=== PATIENT | male | born 1970 | race Caucasian/White ===

== ENCOUNTER 2021-07-27 07:47 | Observation (INO) | payer OTHER ==
--- NOTE | 2021-07-27 09:00 | XR ---
EXAMINATION TYPE: XR chest 2V DATE OF EXAM: 07/27/2021 COMPARISON: None HISTORY: 50-year-old male confusion, altered mental status TECHNIQUE: PA and lateral views FINDINGS: The cardiomediastinal silhouette, aorta, and pulmonary vasculature are within normal limits. Mild hyp erinflation. Some strandy atelectasis in the lower lungs. Otherwise, lungs and pleural spaces are jone ar. IMPRESSION: Hyperinflation may relate to depth of inspiration or underlying emphysema. Clinically correlate. Othe rwise, no acute cardiopulmonary process.
[2021-07-27 09:18] LABS: Basophils # (A) 0.1 k/uL (0-0.2); Basophils % (A) 1 %; Eosinophils # (A) 0.1 k/uL (0-0.7); Eosinophils % (A) 1 %; HCT 46.3 % (39.0-53.0); HGB 15.8 gm/dL (13.0-17.5); Lymphocytes # (A) 2.8 k/uL (1.0-4.8); Lymphocytes % (A) 36 %; MCH 31.2 pg (25.0-35.0); MCHC 34.2 g/dL (31.0-37.0); MCV 91.3 fL (80.0-100.0); Mean Platelet Volume 8.3; Monocytes # (A) 0.5 k/uL (0-1.0); Monocytes % (A) 6 %; Neutrophils # (A) 4.2 k/uL (1.3-7.7); Neutrophils % (A) 54 %; Platelet Count 192 k/uL (150-450); RBC 5.07 m/uL (4.30-5.90); RDW 12.3 % (11.5-15.5); WBC 7.7 k/uL (3.8-10.6)
--- NOTE | 2021-07-27 09:28 | ED ---
General Adult HPI - General Chief complaint: Neuro Symptoms/Deficit Stated complaint: Facial Numbness Source: patient Mode of arrival: ambulatory Limitations: no limitations - History of Present Illness Initial comments: 50-year-old male with past medical history of hyperlipidemia presents emergency Department with reported left eye drooping and numbness to his left cheek. Charlette cruz reports that his symptoms started over the weekend. His girlfriend noticed that his left eyelid was drooping which appears to have subsequently resolved. He was putting lubricating eyedrops in the left eye. This morning the patient awoke and noted a numbing sensation to his left cheek. Denies any new facial droop. No numbness, tingling or weakness in his left upper lower extremity. No speech difficulties or swallowing changes. Denies chest pain or shortness of breath. No history of stroke. Denies any recent head trauma. No fevers or chills. Patient is on a blood thinner. No headaches or visual changes. No other alleviating, precipitating or modifying factors - Related Data Home Medications Medication Instructions Recorded Confirmed Rosuvastatin [Crestor] 10 mg PO DAILY 07/27/21 07/27/21 Previous Rx's Medication Instructions Recorded Artificial Tears-Hypromellose 1 drops RIGHT EYE Q2H PRN #5 ml 07/28/21 [Artificial Tear Drops] predniSONE [Deltasone] See Taper PO DAILY 30 Days #53 tab 07/28/21 valACYclovir [Valtrex] 1,000 mg PO TID 7 Days #21 tab 07/28/21 Allergies Allergy/AdvReac Type Severity Reaction Status Date / Time No Known Allergies Allergy Verified 07/27/21 09:43 Review of Systems ROS Statement: Those systems with pertinent positive or pertinent negative responses have been documented in the HPI. ROS Other: All systems not noted in ROS Statement are negative. Past Medical History Past Medical History: Hyperlipidemia History of Any Multi-Drug Resistant Organisms: None Reported Past Surgical History: No Surgical Hx Reported Past Psychological History: No Psychological Hx Reported Smoking Status: Never smoker Past Alcohol Use History: None Reported Past Drug Use History: None Reported General Exam Limitations: no limitations General appearance: alert, in no apparent distress Head exam: Present: atraumatic, normocephalic, other (right upper and lower facial droop - mild. All extremities 5/5 strength. ) Eye exam: Present: normal appearance, PERRL, EOMI. Absent: scleral icterus, conjunctival injection, periorbital swelling Pupils: Present: unequal, other (left 5 mm, right 4 mm. Both reactive) ENT exam: Present: normal exam, mucous membranes moist Neck exam: Present: normal inspection. Absent: tenderness, meningismus, lymphadenopathy Respiratory exam: Present: normal lung sounds bilaterally. Absent: respiratory distress, wheezes, rales, rhonchi, stridor Cardiovascular Exam: Present: regular rate, normal rhythm, normal heart sounds. Absent: systolic murmur, diastolic murmur, rubs, gallop, clicks GI/Abdominal exam: Present: soft, normal bowel sounds. Absent: distended, tenderness, guarding, rebound, rigid Extremities exam: Present: normal inspection, full ROM, normal capillary refill. Absent: tenderness, pedal edema, joint swelling, calf tenderness Back exam: Present: normal inspection Neurological exam: Present: alert, oriented X3, CN II-XII intact Psychiatric exam: Present: normal affect, normal mood Skin exam: Present: warm, dry, intact, normal color. Absent: rash Course Vital Signs 07/27/21 07/27/21 07/27/21 07:55 10:40 11:29 Temperature 97.4 F L Pulse Rate 64 68 61 Respiratory 18 18 16 Rate Blood Pressure 143/84 128/75 141/86 O2 Sat by Pulse 99 98 100 Oximetry 07/27/21 07/27/21 14:24 16:39 Temperature Pulse Rate 69 78 Respiratory 16 18 Rate Blood Pressure 125/83 134/87 O2 Sat by Pulse 97 96 Oximetry - Reevaluation(s) Reevaluation #1: 07/27/21 10:[address] Castrejon. Reports that he will be by to evaluate the patient EKG Findings - EKG Comments: EKG Findings:: EKG demonstrates a sinus bradycardia with a rate of 56. NV interval 199. QRS 102. QTC of 387. There is some J-point elevation in 1, 2, 3, aVF as well as V3 through V6. No reciprocal changes. Medical Decision Making - Medical Decision Making Upon arrival patient was placed into bed 23. A thorough history and physical exam was performed. Patient has subjective paresthesias the left face. Left pupil appears mildly enlarged, 4 mm compared to the right which is 3 mm. Both are brisk. Patient has no weakness in his upper or lower extremities. As the patient's symptoms have been present for several days, code stroke was not activated. Laboratory studies were conducted and the patient went for a CT as well as CT angiography. Laboratory studies and CT are read as negative. I called and spoke with Dr. Alcaraz who does present to the emergency room to evaluate the patient. He does feel that the patient requires MRI at this time. I did speak with the MRI staff who states that there are 9 other patient's awaiting MRI at this time. I informed the patient of this. Patient would be admitted to the hospital until MRI can be performed. Spoke with Dr. Matamoros who agreed to admit the patient. He is currently awaiting a bed on the floor in stable condition - Lab Data Result diagrams: 07/28/21 05:42 07/28/21 05:42 Lab Results 07/27/21 07/27/21 07/27/21 Range/Units 08:35 08:41 08:41 WBC 7.7 (3.8-10.6) k/uL RBC 5.07 (4.30-5.90) m/uL Hgb 15.8 (13.0-17.5) gm/dL Hct 46.3 (39.0-53.0) % MCV 91.3 (80.0-100.0) fL MCH 31.2 (25.0-35.0) pg MCHC 34.2 (31.0-37.0) g/dL RDW 12.3 (11.5-15.5) % Plt Count 192 (150-450) k/uL MPV 8.3 Neutrophils % 54 % Lymphocytes % 36 % Monocytes % 6 % Eosinophils % 1 % Basophils % 1 % Neutrophils # 4.2 (1.3-7.7) k/uL Lymphocytes # 2.8 (1.0-4.8) k/uL Monocytes # 0.5 (0-1.0) k/uL Eosinophils # 0.1 (0-0.7) k/uL Basophils # 0.1 (0-0.2) k/uL PT (9.0-12.0) sec INR (<1.2) APTT (22.0-30.0) sec Sodium 139 (137-145) mmol/L Potassium 4.2 (3.5-5.1) mmol/L Chloride 106 (98-107) mmol/L Carbon Dioxide 26 (22-30) mmol/L Anion Gap 7 mmol/L BUN 12 (9-20) mg/dL Creatinine 1.00 (0.66-1.25) mg/dL Est GFR (CKD-EPI)AfAm >90 (>60 ml/min/1.73 sqM) Est GFR (CKD-EPI)NonAf 89 (>60 ml/min/1.73 sqM) Glucose 109 H (74-99) mg/dL Calcium 9.2 (8.4-10.2) mg/dL Total Bilirubin 0.9 (0.2-1.3) mg/dL AST 26 (17-59) U/L ALT 24 (4-49) U/L Alkaline Phosphatase 56 (38-126) U/L Troponin I <0.012 (0.000-0.034) ng/mL Total Protein 7.2 (6.3-8.2) g/dL Albumin 4.3 (3.5-5.0) g/dL 07/27/21 Range/Units 09:35 WBC (3.8-10.6) k/uL RBC (4.30-5.90) m/uL Hgb (13.0-17.5) gm/dL Hct (39.0-53.0) % MCV (80.0-100.0) fL MCH (25.0-35.0) pg MCHC (31.0-37.0) g/dL RDW (11.5-15.5) % Plt Count (150-450) k/uL MPV Neutrophils % % Lymphocytes % % Monocytes % % Eosinophils % % Basophils % % Neutrophils # (1.3-7.7) k/uL Lymphocytes # (1.0-4.8) k/uL Monocytes # (0-1.0) k/uL Eosinophils # (0-0.7) k/uL Basophils # (0-0.2) k/uL PT 11.3 (9.0-12.0) sec INR 1.0 (<1.2) APTT 25.6 (22.0-30.0) sec Sodium (137-145) mmol/L Potassium (3.5-5.1) mmol/L Chloride (98-107) mmol/L Carbon Dioxide (22-30) mmol/L Anion Gap mmol/L BUN (9-20) mg/dL Creatinine (0.66-1.25) mg/dL Est GFR (CKD-EPI)AfAm (>60 ml/min/1.73 sqM) Est GFR (CKD-EPI)NonAf (>60 ml/min/1.73 sqM) Glucose (74-99) mg/dL Calcium (8.4-10.2) mg/dL Total Bilirubin (0.2-1.3) mg/dL AST (17-59) U/L ALT (4-49) U/L Alkaline Phosphatase (38-126) U/L Troponin I (0.000-0.034) ng/mL Total Protein (6.3-8.2) g/dL Albumin (3.5-5.0) g/dL Disposition Clinical Impression: Left facial numbness, Wheeler's palsy Disposition: ADMITTED IP TO THIS [facility] Condition: Stable Is patient prescribed a controlled substance at d/c from ED?: No Decision to Admit Reason: Admit from EC Decision Date: 07/27/21 Decision Time: 11:51
[2021-07-27 09:39] LABS: ALT 24 U/L (4-49); AST 26 U/L (17-59); African American GFR (CKD) >90 (>60 ml/min/1.73 sqM); Albumin 4.3 g/dL (3.5-5.0); Alkaline Phosphatase 56 U/L (38-126); Anion Gap 7 mmol/L; Blood Urea Nitrogen 12 mg/dL (9-20); Calcium 9.2 mg/dL (8.4-10.2); Carbon Dioxide 26 mmol/L (22-30); Chloride 106 mmol/L (98-107); Glucose 109 mg/dL (74-99); Non-African American GFR(CKD) 89 (>60 ml/min/1.73 sqM); Potassium 4.2 mmol/L (3.5-5.1); Sodium 139 mmol/L (137-145); Total Bilirubin 0.9 mg/dL (0.2-1.3); Total Protein 7.2 g/dL (6.3-8.2)
--- NOTE | 2021-07-27 09:50 | CT ---
EXAMINATION TYPE: CT brain wo con DATE OF EXAM: 07/27/2021 COMPARISON: None. HISTORY: Left eyelid drooping yesterday, since resolved. Decreased sensation to left side of face. CT DLP: 1189.8 mGycm. Automated Exposure Control for Dose Reduction was Utilized. TECHNIQUE: CT scan of the head is performed without contrast. FINDINGS: There is no acute intracranial hemorrhage, mass effect, or midline shift identified. Mild ventricular sulcal prominence greatest in the bilateral frontal lobes. Wynne-white matter differentia tion is maintained. Nasal septum is deviated to right of midline. The globes are intact and the visua lized sinuses are clear. IMPRESSION: No acute intracranial hemorrhage or midline shift is seen.
[2021-07-27 09:56] LABS: Partial Thromboplastin Time 25.6 sec (22.0-30.0); Prothrombin Time 11.3 sec (9.0-12.0)
--- NOTE | 2021-07-27 10:17 | CT ---
EXAMINATION TYPE: CT angio head neck DATE OF EXAM: 07/27/2021 HISTORY: Left eyelid drooping yesterday, since resolved. Decreased sensation to left side of face. COMPARISON: Nonenhanced brain CT scan performed earlier same day CT DLP: 726.5 mGycm. Automated Exposure Control for Dose Reduction was Utilized. TECHNIQUE: CTA scan of the neck is performed with IV Contrast, patient injected with 65 mL of Isovue 370, axial images are obtained, coronal and sagittal reformatted images are reviewed. 3D reconstruct ed images are created on an independent workstation and reviewed. FINDINGS: Carotid/Vascular Structures: Normal caliber and enhancement of the neck arteries and intracranial art eries without significant stenosis, occlusion, dissection, aneurysm or AV malformation. Patent major intracranial venous sinuses. Other: No intracranial abnormal enhancement. IMPRESSION: No significant arterial abnormality is seen.
[2021-07-27] MEDS ORDERED: NALOXONE 0.4 MG/ML 1 ML VIAL IV PRN (11:51)
--- NOTE | 2021-07-27 11:51 | P.CNNES ---
History of Present Illness Consult date: 07/27/21 Requesting physician: Brinda Chaparro Reason for Consult: [place] Palsy vs CVA History of Present Illness: Patient is a 50-year-old right-handed male, who developed numbness in the left facial region, pointing to the left maxillary region at around 5 AM this morning. He had some tingling sensation in the left cheek area, then extended down to involve the left jaw region. The tingling in the left maxillary region has resolved, but now he has persistent tingling type sensation in the left jaw region. He had a transient tingling in the anterior chin region, which he pointed to the center of the chin across anteriorly (bilaterally). The tingling in the center of the chin region lasted only for an hour. He denies any slurred speech, focal weakness, facial droop, drooling, slurred speech, diplopia, loss of vision, any headache or any symptoms in the upper or lower extremities. No issues with the balance. Denies any retroauricular headache, changes in hearing, or loss of taste sensation. No excessive lacrimation. He feels his eyes are slightly dry and was using eyedrops for last couple days. Patient furt her states that on Tuesday, 3 days ago, his fianc noticed that his left eyelid was slightly droopy, blinking "slightly different" as compared to the right side. Due to these symptoms, patient came to the ER. Chest x-ray showed hyperinflation, correlate for emphysema. No other process. EKG shows sinus bradycardia. CT head normal. CTA of head and neck are normal. All blood tests were reviewed. Patient denies any tobacco use, drinks alcohol occasionally. No drug use. Denies any hypertension or diabetes. He does have hyperlipidemia for which he takes statins. Denies any head or neck injury. Although he states that being his height of 6 feet 8 inches, he does clock his head on the door sometimes. But no concussion. Patient does not take any blood thinners. Review of Systems All other 14 point review of systems reviewed and unremarkable except as me ntioned in HPI. Past Medical History Past Medical History: Hyperlipidemia History of Any Multi-Drug Resistant Organisms: None Reported Past Surgical History: No Surgical Hx Reported Past Psychological History: No Psychological Hx Reported Smoking Status: Never smoker Past Alcohol Use History: None Reported Past Drug Use History: None Reported Medications and Allergies Home Medications Medication Instructions Recorded Confirmed Type Rosuvastatin [Crestor] 10 mg PO DAILY 07/27/21 07/27/21 History Allergies Allergy/AdvReac Type Severity Reaction Status Date / Time No Known Allergies Allergy Verified 07/27/21 09:43 Physical Examination - Vital Signs Vital Signs: Vital Signs Temp Pulse Resp BP Pulse Ox 07/27/21 10:40 68 18 128/75 98 07/27/21 07:55 97.4 F L 64 18 143/84 99 Intake and Output 07/26/21 07/27/21 07/27/21 22:59 06:59 14:59 Other: Weight 106.594 kg Patient is a middle aged male, in no acute distress. Patient is alert awake oriented to time place and person. Speech and language functions are normal. Attention, concentration and fund of knowledge is ad equate. On cranial examination, pupils are equal, round and reacting to light, visual duarte are full on confrontation, with no neglect on double simultaneous supination. His extraocular muscles are intact with no nystagmus. Patient has right facial weakness, mild in degree, but peripheral type, involving the upper and lower part of the face. His tongue protrudes to the midline. Palatal eleva tion and sensation normal, hearing and shoulder shrug normal, facial sensation normal. Shoulder shrug normal. On muscle strength testing, there is no pronator drift and the strength is normal in arms and legs distally and proximally. Deep tendon reflexes are symmetric, 1+ in the upper limbs, 2 in the lower limbs and plantars downgoing bilaterally. Sensory to touch is equal with no neglect. Cerebellar function showed no ataxia for welkoy-sw-lwsl testing. No dysdiadochokinesia. Tone and bulk of muscles normal. Gait normal. On general examination, there is no carotid bruit or murmur, S1-S2 audible. Abdomen is soft nontender. No organomegaly, bowel sounds present. Chest is clear to auscultation. Peripheral pulses are present. No edema. Results - Laboratory Findings CBC and BMP: 07/27/21 08:35 07/27/21 08:41 Abnormal Lab Findings: Abnormal Labs 07/27/21 08:41 Glucose 109 H Assessment and Plan Assessment: * 50-year-old male presented with left facial paresthesias mainly involving the left maxillary and mandibular region. Examination revealed mild facial weakness, peripheral type, however involving the contralateral side (right side). Symptoms appears like right Wheeler's palsy. However he does not have other preceding symptoms like headache, loss of taste sensation or hyperacusis. Rule out CVA, although less likely. * Hyperlipidemia Plan: * Brain MRI, rule out CVA * If the MRI is negative, patient will be clear for discharge on prednisone 60 mg daily for 5 days and then decrease by 10 mg daily until off. Also Valtrex 1 g 3 times a day for 7 days. * Artificial tears right eye every 2 hours. * May consider eye patch and Lacri-Lube ointment at night, if does not close the eyelids while sleeping (to be observed by family). * Start aspirin 81 mg daily for now. * We will follow after MRI brain. Discussed with the ED staff
[2021-07-27] MEDS: predniSONE 20 MG TAB PO SCH (12:10)
--- NOTE | 2021-07-27 12:22 | P.HPIM ---
History of Present Illness Chief Complaint: Facial numbness Patient is a 50-year-old male with a past medical history significant for hyperlipidemia that presents to the hospital secondary to left-sided numbness which lasted approximately 30 minutes. This started when he woke up around 5 AM and soon after subsided. Patient reports that his girlfriend did notice some irregular twitching of his left eye however very nonspecific. Patient denies any focal deficits including weakness, numbness or tickling sensation during my examination. Vital signs were reviewed and unremarkable, CBC BMP unremarkable. Neurology was consulted from the emergency department that has ordered a MRI of the brain and started the patient on steroids empirically for possible diagnosis of Wheeler's palsy. Past Medical History Past Medical History: Hyperlipidemia History of Any Multi-Drug Resistant Organisms: None Reported Past Surgical History: No Surgical Hx Reported Past Psychological History: No Psychological Hx Reported Smoking Status: Never smoker Past Alcohol Use History: None Reported Past Drug Use History: None Reported Medications and Allergies Home Medications Medication Instructions Recorded Confirmed Type Rosuvastatin [Crestor] 10 mg PO DAILY 07/27/21 07/27/21 History Allergies Allergy/AdvReac Type Severity Reaction Status Date / Time No Known Allergies Allergy Verified 07/27/21 09:43 Physical Exam Vitals: Vital Signs Temp Pulse Resp BP Pulse Ox 07/27/21 11:29 61 16 141/86 100 07/27/21 10:40 68 18 128/75 98 07/27/21 07:55 97.4 F L 64 18 143/84 99 Intake and Output 07/26/21 07/27/21 07/27/21 22:59 06:59 14:59 Other: Weight 106.594 kg Gen. patient is awake alert oriented 3 Cardio normal S1/S2 heard Respiratory normal normal air entry bilaterally, no wheezing or rhonchi appreciated Abdomen soft, nontender Neuro cranial nerves II-12 grossly intact 5 out of 5 muscle strength bilaterally upper and lower extremity Normal sensation upper and lower extremity Results CBC & Chem 7: 07/27/21 08:35 07/27/21 08:41 Labs: Abnormal Lab Results - Last 24 Hours (Table) 07/27/21 Range/Units 08:41 Glucose 109 H (74-99) mg/dL Assessment and Plan Plan: Assessment: #1 left-sided numbness secondary to Wheeler's palsy versus less likely TIA? - resolved. #2 hyperlipidemia Plan: -Admit to medicine for close monitoring -Aspiration/fall precaution -Neurology consulted pending further recommendations -Agree with steroids -We'll coordinate with neurology regarding ordering a stroke workup including 2- D echocardiogram, lipid panel, hemoglobin A1c -No indication for PT/OT patient is a symptomatically -DVT prophylaxis SCDs for now
[2021-07-27] MEDS: valACYclovir 500 MG TAB PO SCH ×3 (13:09→22:29)
[2021-07-27] MEDS: ASPIRIN 81 MG PO SCH (18:22)
[2021-07-27] MEDS: FAMOTIDINE 20 MG TAB PO SCH (20:52)
[2021-07-28] MEDS: FAMOTIDINE 20 MG TAB PO SCH (08:36)
[2021-07-28] MEDS: predniSONE 20 MG TAB PO SCH (08:36)
[2021-07-28] MEDS: valACYclovir 500 MG TAB PO SCH ×2 (08:36→16:14)
[2021-07-28] MEDS: ASPIRIN 81 MG PO SCH (08:36)
[2021-07-28 09:30] LABS: Basophils # (A) 0.03 X 10*3/uL (0.00-0.10); Basophils % (A) 0.2 %; Eosinophils # (A) 0.03 X 10*3/uL (0.04-0.35); Eosinophils % (A) 0.2 %; HCT 46.2 % (39.6-50.0); HGB 15.2 g/dL (13.0-17.0); Immature Grans, Automated 0.4 %; Lymphocytes # (A) 2.36 X 10*3/uL (0.90-5.00); MCH 29.9 pg (27.0-32.0); MCHC 32.9 g/dL (32.0-37.0); MCV 90.9 fL (80.0-97.0); Mean Platelet Volume 11.3 fL (9.5-12.2); Monocytes # (A) 1.09 X 10*3/uL (0.20-1.00); Monocytes % (A) 8.3 %; NRBC Per 100 WBC 0 /100 WBCS (0.0-0.0); Neutrophils # (A) 9.55 X 10*3/uL (1.80-7.70); Neutrophils % (A) 72.9 %; Platelet Count 207 X 10*3/uL (140-440); RBC 5.08 X 10*6/uL (4.40-5.60); RDW 12.2 % (11.5-14.5); WBC 13.11 X 10*3/uL (4.50-10.00)
[2021-07-28 10:03] LABS: African American GFR (CKD) 95.7 (60.0-200.0); Anion Gap 10.9 mmol/L (10.00-18.00); BUN/Creat Ratio 13.96 Ratio (12.00-20.00); Blood Urea Nitrogen 14.8 mg/dL (9.0-27.0); Calcium 9.1 mg/dL (8.7-10.3); Non-African American GFR(CKD) 82.6 (60.0-200.0); Potassium 3.8 mmol/L (3.5-5.5)
--- NOTE | 2021-07-28 14:30 | MR ---
EXAMINATION TYPE: MR brain wo con DATE OF EXAM: 07/28/2021 COMPARISON: CT brain from yesterday HISTORY: Right facial weakness, possible [place] r/o CVA TECHNIQUE: Multiplanar, multisequence imaging of the brain and brainstem is performed without IV cont rast. FINDINGS: Diffusion weighted images demonstrate no evidence of a recent infarct or other diffusion abnormality. There is no extraaxial fluid collection or significant white matter signal abnormality. The ventricu lar system and cisternal spaces are normal in size and appearance. The brain volume is age appropria te. Midline structures demonstrate normal morphology. The craniocervical junction appears within normal limits. Normal vascular flow voids are present. The visualized sinuses are clear and the globes are i ntact. IMPRESSION: No MRI evidence for a recent infarct. Unremarkable study.
--- NOTE | 2021-07-28 15:52 | P.DS ---
Providers Date of admission: 07/27/21 11:53 Expected date of discharge: 07/28/21 Attending physician: Jie Matamoros DO Consults: 07/27/21 11:53 Consult Physician Urgent Consulting Provider: Rodrigue Castrejon Consult Reason/Comments: left facial numbness Do you want consulting provider notified?: Already Contacted Primary care physician: Ubaldo Arcos Hospital Course: Discharge Diagnosis: Wheeler's palsy, patient discharged on extended prednisone taper and a 7 day course of Valtrex. Patient also instructed on use of artificial tears and eye patch as needed. Hyperlipidemia Hospital Course: Patient is a very pleasant 50-year-old male with a past medical history of hyperlipidemia on rosuvastatin. He presented to the emergency department on 07/27/21 with a chief complaint of left-sided facial numbness lasting approximately 30 minutes and subsiding. Patient reports upon awakening around 5 AM he noticed this numbness which was felt throughout left cheek, lip and down into his jaw accompanied by mild tingling sensation. Patient reports in addition he noticed that his left eyelid was slightly droopy and was not closing completely. Upon arrival to the emergency department patient reports full resolution of symptoms with the exception that his left eye does not seem like it is closing as well as prior to this event. He underwent full evaluation in the emergency department. Chest x-ray revealed mild hyperinflation, possible underlying emphysema. EKG revealing sinus bradycardia at 56 bpm with no noted T-wave or ST abnormalities. CT head normal. CTA head and neck negative for acute findings. CBC, coags, troponin, and CMP were all unremarkable. Patient was admitted under our services with consultation to neurology. He underwent an MRI of his brain which was negative for acute intracranial abnormality showing no evidence for recent infarct. Patient was seen and fully evaluated by neurology. Patient started on extended prednisone taper along with Valtrex 1 g 3 times daily for 7 days. Patient is medically stable at this time and is stable for discharge home. Patient to follow-up with neurologist and PCP outpatient. Physical examination: Vital signs reviewed and stable. General: Nontoxic, no distress and appears stated age. Derm: Skin warm and dry, normal coloration for ethnicity. Head: Atraumatic, normocephalic and symmetric. Eyes: EOMs intact, no lid lag, and anicteric sclera Mouth: no lip lesions, mucus membranes moist Cardiovascular: regular rate and rhythm with normal S1S2, no murmur, positive posterior tibial pulses bilaterally, and cap refill < 2 seconds. Lungs: Respirations even, regular, and unlabored on room air. Lungs CTA bilaterally, no rhonchi, no rales, no wheezing, and no accessory muscle usage. Abdominal: soft, nontender to palpation, no guarding, no appreciable organomegaly Ext: ROM intact. No gross muscle atrophy, no edema, no contractures Neuro: Speech clear, face symmetrical and CN II-XII grossly intact with no noted focal neuro deficits Psych: Alert and oriented to person, place, time, and situation. Appropriate and pleasant affect. A total of 35 minutes of time were spent preparing this complex discharge summary. Patient Condition at Discharge: Stable Plan - Discharge Summary Discharge Rx Participant: No New Discharge Prescriptions: New predniSONE [Deltasone] See Taper PO DAILY 30 Days #53 tab valACYclovir [Valtrex] 1,000 mg PO TID 7 Days #21 tab Artificial Tears-Hypromellose [Artificial Tear Drops] 1 drops RIGHT EYE Q2H PRN #5 ml PRN Reason: Dry Eye(S) Continue Rosuvastatin [Crestor] 10 mg PO DAILY Discharge Medication List Rosuvastatin [Crestor] 10 mg PO DAILY 07/27/21 [History] Artificial Tears-Hypromellose [Artificial Tear Drops] 1 drops RIGHT EYE Q2H PRN #5 ml 07/28/21 [Rx] predniSONE [Deltasone] See Taper PO DAILY 30 Days #53 tab 07/28/21 [Rx] valACYclovir [Valtrex] 1,000 mg PO TID 7 Days #21 tab 07/28/21 [Rx] Follow up Appointment(s)/Referral(s): Ubaldo Arcos MD [Primary Care Provider] - 1-2 days Keyanna Gonzalez MD [REFERRING] - 2 Weeks Patient Instructions/Handouts: Wheeler Palsy (GEN), Paresthesia (GEN) Activity/Diet/Wound Care/Special Instructions: Activity: As tolerated. Take breaks as needed. Diet: Heart healthy and carb consistent diet. Avoid salts, or foods with hidden salts such as canned or boxed foods and frozen dinners. Extra salt makes your heart work harder and traps the fluid in your body for longer. Special Instructions: Take all of your medications as directed and remember to keep all of your doctor's appointments and follow-up as needed. May use artificial tears to your left eye every 2 hours as needed and if you continue to have difficulties with closing your eyelid especially while sleeping you may consider wearing an eye patch for protection. Thank you for allowing us to participate in your care, it was truly a pleasure having you for our patient!!! Discharge Disposition: HOME SELF-CARE
[2021-07-28 16:07] VITALS: BP 123/77; PULSE 73; RESP 15; TEMP 97.9
--- NOTE | 2021-07-29 09:31 | P.PN ---
Subjective Progress Note Date: 07/28/21 Patient was seen for a follow-up. Patient is feeling better. Patient has right facial weakness, peripheral type. No other neurological symptoms. Left facial paresthesias resolved. Objective - Vital Signs Vital signs: Vital Signs Temp 98.2 F 07/28/21 07:00 Pulse 62 07/28/21 07:00 Resp 16 07/28/21 07:00 BP 117/71 07/28/21 07:00 Pulse Ox 97 07/28/21 07:00 Intake & Output 07/27/21 07/28/21 07/28/21 18:59 06:59 18:59 Intake Total 118 Balance 118 Weight 106.594 kg Intake: Oral 118 Other: # Voids 1 1 - Exam Only positive for right facial weakness, peripheral type. - Labs CBC & Chem 7: 07/28/21 05:42 07/28/21 05:42 Labs: Abnormal Lab Results - Last 24 Hours (Table) 07/28/21 Range/Units 05:42 WBC 13.11 H (4.50-10.00) X 10*3/uL Immature Gran # 0.05 H (0.00-0.04) X 10*3/uL Neutrophils # 9.55 H (1.80-7.70) X 10*3/uL Monocytes # 1.09 H (0.20-1.00) X 10*3/uL Eosinophils # 0.03 L (0.04-0.35) X 10*3/uL Assessment and Plan Assessment: * Wheeler's palsy, right side, incomplete. * Hyperlipidemia Plan: * Brain MRI is normal, negative for MS or CVA. I personally reviewed, agree with the findings. * Continue prednisone 60 mg daily for 5 days and then decrease by 10 mg daily until off. Also Valtrex 1 g 3 times a day for 7 days. * Artificial tears right eye every 2 hours. * May consider eye patch and Lacri-Lube ointment at night, if does not close the eyelids while sleeping (to be observed by family). * Start aspirin 81 mg daily for now. * Neurologically clear for discharge.
--- NOTE | 2021-08-01 10:28 | P.PN ---
Progress Note - Text Progress Note Date: 08/01/21 received a call from [facility] pharmacist that there was an issue with the prescription for prednisone and the patient had inadvertently been given 120 mg taper to start instead of a 60 mg taper to start. I instructed to have the patient take prednisone 40 mg daily X 2, 20 mg daily for 2 days, 10 mg daily for 2 days
== END 2021-07-28 16:23 | disposition home or self-care (01) ==
LOC: EC 07:47 → 6NMEDSUR 11:53
PROVIDERS: ADMIT Hospitalist; ATTEND Internal Medicine
DX: G51.0 Bell's palsy (principal); E78.5 Hyperlipidemia, unspecified; R00.1 Bradycardia, unspecified; Z79.899 Other long term (current) drug therapy; Z71.9 Counseling, unspecified; Z71.3 Dietary counseling and surveillance
CPT/HCPCS: 99285; 36415; 93005; 80053; 80048; 84484; 85025 ×2; 85610; 85730; 71046; 70496; 70450; 70498; 70551; G0378 ×2; J7512 ×2; Q9967

== ENCOUNTER 2023-05-27 11:54 | Day surgery (SDC) | payer OTHER ==
[2023-05-23 16:02] VITALS: BMI 25.2
[~2023-05-27 11:54] MED LIST: LACTATED RINGERS 1,000 ML IV SCH; LIDOCAINE 1% (10MG/ML) FOR IV START INTRADERMA PRN
[2023-05-27 12:32] VITALS: TEMP 96.9
[2023-05-27] MEDS ORDERED: PROPOFOL 10 MG/ML 20 ML VIAL IV ONE (13:22)
--- NOTE | 2023-05-27 13:44 | P.PCN ---
Date of Procedure: 05/27/23 Procedure(s) Performed: BRIEF HISTORY: Patient is a 52-year-old pleasant white male scheduled for an elective colonoscopy as a part of screening for colorectal neoplasia. PROCEDURE PERFORMED: Colonoscopy with snare polypectomy. PREOPERATIVE DIAGNOSIS: Screening for colon cancer. . IV sedation per Anesthesia. PROCEDURE: After informed consent was obtained, the patient, was brought into the endoscopy unit. IV sedation was administered by Anesthesia under continuous monitoring. Digital rectal examination was normal. Initially the Olympus CF-160 flexible video colonoscope was then inserted in the rectum, gradually advanced into the cecum without any difficulty. Careful examination was performed as the scope was gradually being withdrawn. Ileocecal valve and the appendiceal orifice were visualized and appeared normal. Prep was excellent. Mucosa of the cecum, ascending colon, transverse colon, descending colon, sigmoid colon, and rectum appeared normal. Proximal rectum there was a 1 cm polyp that was removed by snare polypectomy. Retroflexion was performed in the rectum and no lesions were seen. The patient tolerated the procedure well. IMPRESSION: 1 cm proximal rectal polyp status post snare polypectomy Rest of the colon appeared normal RECOMMENDATIONS: Findings of this examination were discussed with the patient as well as his family. He was advised to follow with the biopsy result. If the biopsy result he can have a repeat colonoscopy in 3 years..
[2023-05-27 14:10] VITALS: BP 120/77; PULSE 62; RESP 16
== END 2023-05-27 14:35 | disposition home or self-care (01) ==
LOC: ORWHC2ENDO 11:54
PROVIDERS: ATTEND Internal Medicine Gastroenterology
DX: Z12.11 Encounter for screening for malignant neoplasm of colon (principal); D12.8 Benign neoplasm of rectum; E78.5 Hyperlipidemia, unspecified; Z79.899 Other long term (current) drug therapy; Z98.890 Other specified postprocedural states
CPT/HCPCS: 88305; 45385; J2704